=== PATIENT | female | born 1970 | race Caucasian/White ===

== ENCOUNTER 2016-08-05 09:06 | Inpatient (IN) | payer BC ==
[2016-08-05] MEDS ORDERED: NS 1,000 ML IV ONE ×2 (09:25→09:26)
[2016-08-05] MEDS ORDERED: ONDANSETRON HCL 4 MG/2 ML VIAL IV ONE (09:26)
--- NOTE | 2016-08-05 09:29 | EDPRACDOC ---
- General Information Chief Complaint: Nausea,Vomiting,Diarrhea Stated Complaint: HYPERGLYCEMIA Time Seen by Provider: 08/05/16 09:22 Mode Of Arrival: Car Home Medications: Home Medications Gabapentin 600 mg PO BID 12/07/15 Apixaban [Eliquis] 5 mg PO BID #60 tablet 07/07/16 Esomeprazole Mag Trihydrate [Nexium] 40 mg PO BID #60 capsule.dr 07/07/16 Metoclopramide HCl [Reglan] 5 mg PO ACHS #30 tab 07/07/16 Mupirocin Calcium [Bactroban Nasal] 1 gm INTRANAS BID #1 oint...g. 07/07/16 Ondansetron HCl [Zofran] 4 mg PO Q6H PRN #30 tab 07/07/16 Oxycodone Immediate Release [Oxycodone Immediate Release (OxyIR)] 5 mg PO Q4H PRN #20 tablet 07/07/16 Probiotic Blend [Zoey Q] 1 tab PO BIDWM #20 tablet 07/07/16 Insulin Glargine [Lantus Pen] 35 units SQ QAM 08/05/16 Insulin Lispro [Humalog] 0 units SQ .SLIDING SCALE 08/05/16 Pantoprazole Sodium [Protonix] 40 mg PO BID 08/05/16 Allergies/Adverse Reactions: Allergies Allergy/AdvReac Type Severity Reaction Status Date / Time No Known Allergies Allergy Verified 08/05/16 09:19 - History of Present Illness Onset: LAST NIGHT HPI: PT HAS A HX OF DIABETES. SHE WAS ADMITTED ON 07/01 FOR DKA AND WAS D/C'D ON THE . SHE SAID THAT SHE FEELS THE SAME WAY. SHE STARTED HAVING N/V LAST NIGHT AND VOMITED ALL NIGHT. SHE SAID THAT SHE HAS NOT SKIPPED ANY OF HER MEDS. Symptoms Occured: Reports: Spontaneous Duration: Reports: Continuous Recent: Reports: None Pain Severity: Mild History of: Denies: UTI Associated Signs & Symptoms: Reports: Nausea, Vomiting Oral Intake: Decreased Urinary Output: Decreased ED Past Medical History - Patient Medical History Neurological History: Reports: Cerebrovascular Accident, Dementia Cardiac History: Reports: Hypercholesterolemia. Denies: Atrial Fibrillation, Hypertension, Congestive Heart Failure, Heart Attack Respiratory History: Denies: Asthma, COPD, Emphysema GI/ History: Reports: Gastroesophageal Reflux. Denies: Urinary Tract Infection Musculoskeletal History: Reports: Arthritis, Osteoarthritis Psychological History: Reports: Depression. Denies: Substance Use Disorder Systemic History: Reports: Cancer, Anemia, Diabetes Surgical History: Reports: Cholecystectomy, Hysterectomy, Other ( x3) - Family Medical History Reports: Hypertension, Diabetes, Cancer (MOM-LEUKEMIA), Stroke (MOM) - Social Medical History Smoking Status: Never smoker Social History: Denies: Substance Use Disorder ETOH: None Substance Abuse: None Lives In: Home EDM Review of Systems - Review of Systems ROS Negative Except as Marked: Yes All systems reviewed and were negative except as marked Gastrointestinal: Nausea, Vomiting - Physical Exam Constitutional: Alert (Awake), Distress Oriented to: Time, Person, Place Last recorded Vital Signs: Last Vital Signs Temp 97.7 F 08/05/16 09:09 Pulse 106 08/05/16 09:09 Resp 18 08/05/16 09:09 BP 122/82 08/05/16 09:09 Pulse Ox 100 08/05/16 09:09 Oxygen Pulse Oxygen Saturation 100 O2 Device Oxygen Flow Rate Fraction of Inspired Oxygen ( FIO2) - HEENT Head: Normal ( normocephalic) Eye Exam: Normal (PERRL, EOMI, Sclera white) Oropharynx: Membranes Dry ENT EAC: Normal TMJ: Normal Nose: No Symptoms Reported (septum midline) Neck: Normal (FROM, trachea at midline) - Respiratory/Cardiovascular Respiratory: Normal - CTA Cardiovascular: Tachycardia - GI Auscultation: Normal (NABS) Palpation: Normal (Soft,No rebound or guarding, non distended) Tenderness: Mild, Epigastric Steele's Sign: Negative - Musculoskeletal Back: Normal (Non-Tender) Extremities: Normal (Normal tone, Pulses 2+ No cyanosis or edema, FROM) - Integumentary Skin: Normal, Warm, Dry Lymphatics: Normal (no adenopathy) - Neurologic Memory Impaired: Normal Motor Function: Normal (Normal tone, Pulses 2+ No cyanosis or edema, FROM) Cranial Nerve: Normal (CN II-X11 intact sensation, strength 5/5) Cerebellar: Normal Mood Description: Normal Thought: Coherent Perception: Normal - Re-evaluation Re-evaluation 1 Re-evaluation Time: 10:35 (STILL FEELING BADLY) - Results 08/05/16 09:55 08/05/16 09:55 POC Capillary Glucose 387 MG/DL (70-99) H 08/05/16 09:20 Lab Results 08/05/16 09:20 POC Capillary Glucose 387 H - EKG EKG #1 EKG Time: 09:39 -: Yes EKG interpreted by me Rate: bpm: 92 Cardinal: Normal Rhythm: NSR Block: None Hypertrophy: None ST: Normal Comparison: 07/01/16 - Diagnostic Imaging Chest Image interpreted by: Radiologist No active disease. - Departure Yes I personally saw and evaluated the patient. Disposition: Admit IP To This Hospital Condition: Serious Final Diagnosis: Dehydration, Nausea and vomiting, DKA (diabetic ketoacidoses) Instructions: Acute Nausea and Vomiting (ED), Managing Diabetes During Sick Days (ED), Diabetes and Exercise Education/Counseling Given To: Patient Education/Counseling Given Regarding: Diagnosis, Treatment Referrals: Humberto Hernandez MD [Primary Care Provider] - One Week Forms: Patient Discharge Instructions, ED Discharge Instructions Decision to Admit Time: 10:36 Decision to admit date: 08/05/16 Decision to admit: from ED - Physician Consulted Hospitalist Provider Called: Vicky Lemos
[2016-08-05] MEDS ORDERED: REGULAR INSULIN 100 UNITS/ML - 3 ML VIAL IV ONE (09:30)
[2016-08-05 10:02] LABS: AUTOMATED BASOPHIL 0.8 % (0-2); AUTOMATED EOSINOPHIL 0.1 % (0-5); AUTOMATED LYMPH 27.5 % (17-44); AUTOMATED MONOCYTE 5.7 % (3-10); AUTOMATED NEUTROPHIL 65.9 % (45-76)
[2016-08-05 10:10] LABS: LEUKOCYTES/URINE NEG (NEGATIVE); NITRITE/URINE NEG (NEGATIVE); URINE OCCULT BLOOD 2+ (NEG/TRACE)
--- NOTE | 2016-08-05 10:10 | DIRPT ---
CLINICAL DATA: Nausea vomiting. EXAM: PORTABLE CHEST 1 VIEW COMPARISON: April 02, 2016 FINDINGS: The left Port-A-Cath is stable. No other interval changes or acute abnormalities. IMPRESSION: No active disease. Electronically Signed By: Torey Chapa III, M.D On: 08/05/2016 10:07
[2016-08-05 10:14] LABS: BLOOD UREA NITROGEN 16 MG/DL (7-17); CALCIUM 9.2 MG/DL (8.4-10.2); CALCULATED OSMOLALITY 277 MOs/Kg (270-290); CHLORIDE 100 mEq/L (98-107); SODIUM LEVEL 132 mEq/L (137-146); TOTAL PROTEIN 7.4 G/DL (6.3-8.2)
[2016-08-05 10:18] LABS: RBC/URINE 0-2 (0-5); WBC/URINE 0-2 (0-5)
[2016-08-05 10:22] LABS: GLUCOSE 479 MG/DL (70-99)
[2016-08-05] MEDS ORDERED: MORPHINE 4 MG/ML INJECTION IV ONE (10:35)
[2016-08-05] MEDS ORDERED: BENZONATATE 100 MG PERLES PO PRN (11:15)
[2016-08-05] MEDS ORDERED: GUAIFENESIN 200 MG/10 ML UDC PO PRN (11:15)
[2016-08-05] MEDS ORDERED: MAGNESIUM HYDROXIDE 30 ML BOTTLE PO PRN (11:15)
[2016-08-05] MEDS ORDERED: ONDANSETRON HCL 4 MG/2 ML VIAL IV PRN (11:15)
[2016-08-05] MEDS ORDERED: ZOLPIDEM TARTRATE 5 MG TAB PO PRN (11:15)
[2016-08-05] MEDS ORDERED: Docusate Sodium 100 MG CAP PO PRN (11:15)
[2016-08-05] MEDS ORDERED: PROMETHAZINE 25 MG/ML VIAL IV PRN (11:15)
[2016-08-05] MEDS ORDERED: DEXTROSE 25 GM/50 ML PFS IV PRN (11:15)
[2016-08-05] MEDS ORDERED: OXYCODONE HCL 5 MG TABLET PO PRN (11:18)
--- NOTE | 2016-08-05 11:21 | HISTPHYS ---
- Chief Complaint dka, nausea and vomiting - History of Present Illness Ms Ny is a 46-year-old white female well known to me from multiple hospitalizations for diabetic ketoacidosis. She presented to the hospital with nausea vomiting and delirium typical of her DKA symptoms. Her blood sugar is 479 with a bicarb of less than 5 and an anion gap of 32. She is unable to provide much other history but she has repeatedly stated that she is compliant with her insulin and states she took her insulin last evening and today. She has been admitted here approximately once a month for the last 7 months. She is also had frequent admissions to [facility] in [place] into [facility]. Her primary retirement specialist Dr. Bowser in [place] has referred her to [facility] for 2nd opinion to evaluate why she keeps having these frequent episodes of DKA. She is being admitted to the intensive care unit for further evaluation and management of acute DKA. - Medical History Cardiac History: Reports: Hypercholesterolemia. Denies: Atrial Fibrillation, Hypertension, Congestive Heart Failure, Heart Attack Respiratory History: Denies: Asthma, COPD, Emphysema GI/ History: Reports: Gastroesophageal Reflux. Denies: Urinary Tract Infection Musculoskeletal History: Reports: Arthritis, Osteoarthritis Systemic History: Reports: Cancer, Anemia, Diabetes Neurological History: Reports: Cerebrovascular Accident, Dementia Psychological History: Reports: Depression. Denies: Substance Use Disorder - Surgical History Reports: Cholecystectomy, Hysterectomy, Other ( x3) - Medictions/Allergies Allergies No Known Allergies Allergy (Verified 08/05/16 09:19) Home Medications Gabapentin 600 mg PO BID 12/07/15 Apixaban [Eliquis] 5 mg PO BID #60 tablet 07/07/16 Esomeprazole Mag Trihydrate [Nexium] 40 mg PO BID #60 capsule. 07/07/16 Metoclopramide HCl [Reglan] 5 mg PO ACHS #30 tab 07/07/16 Mupirocin Calcium [Bactroban Nasal] 1 gm INTRANAS BID #1 oint...g. 07/07/16 Ondansetron HCl [Zofran] 4 mg PO Q6H PRN #30 tab 07/07/16 Oxycodone Immediate Release [Oxycodone Immediate Release (OxyIR)] 5 mg PO Q4H PRN #20 tablet 07/07/16 Probiotic Blend [Zoey Q] 1 tab PO BIDWM #20 tablet 07/07/16 Insulin Glargine [Lantus Pen] 35 units SQ QAM 08/05/16 Insulin Lispro [Humalog] 0 units SQ .SLIDING SCALE 08/05/16 Pantoprazole Sodium [Protonix] 40 mg PO BID 08/05/16 - Family History Reports: Hypertension, Diabetes, Cancer (MOM-LEUKEMIA), Stroke (MOM) - Social History Lives: Alone Smoking Status: Never smoker Social History: Denies: Alcohol Use, Substance Use Disorder - Review of Systems Yes Review of systems cannot be obtained due to the patient's medical condition (Lethargy and delirium) - Physical Exam Constitutional: Alert (Awake), Distress, Well nourished. negative: Well appearing (Chronically ill-appearing) Oriented to: Time, Person, Place Exam: Last Vital Signs Temp 97.7 F 08/05/16 09:09 Pulse 102 08/05/16 10:40 Resp 08/05/16 10:40 BP 133/80 08/05/16 10:40 Pulse Ox 100 08/05/16 10:40 Intake & Output 08/04/16 08/05/16 08/05/16 23:59 07:59 15:59 Patient's weight 65.771 kg - HEENT Head: Normal ( normocephalic) Eye: Normal (PERRL, EOMI, Sclera white) Oropharynx: Membranes Dry ENT EAC: Normal TMJ: Normal Nose: No Symptoms Reported (septum midline) - Respiratory/Cardiovascular Respiratory: Normal - CTA Cardiovascular: Tachycardia - GI Auscultation: Normal (NABS) Palpation: Normal (Soft,No rebound or guarding, non distended) Tenderness: Mild, Epigastric - Musculoskeletal Back: Normal (Non-Tender) Extremities: Normal (Normal tone, Pulses 2+ No cyanosis or edema, FROM), Edema, Pedal Edema. negative: Femoral Pulse, Pedal Pulse - Integumentary Skin: Normal, Warm, Dry Lymphatics: Normal (no adenopathy). negative: Adenopathy - Neurologic Memory Impaired: Normal Cerebellar: Normal Mood Description: Normal Thought: Coherent Perception: Normal - Focused CV Perfusion Exam Vital Signs: Last Vital Signs Temp 97.7 F 08/05/16 09:09 Pulse 102 08/05/16 10:40 Resp 18 08/05/16 10:40 BP 133/80 08/05/16 10:40 Pulse Ox 100 08/05/16 10:40 - Lab Results Laboratory Results - last 24 hr 08/05/16 08/05/16 08/05/16 09:20 09:53 09:55 WBC RBC Hgb Hct MCV MCH MCHC RDW Plt Count MPV Neut % (Auto) Lymph % (Auto) [place] % (Auto) Eos % (Auto) Baso % (Auto) Absolute Neuts (auto) Absolute Lymphs (auto) Sodium 132 L Potassium 4.8 Chloride 100 Carbon Dioxide < 5 L* Anion Gap 32 H BUN 16 Creatinine 0.50 L Estimated GFR (MDRD) > 60 Glucose 479 H* POC Capillary Glucose 387 H Calculated Osmolality 277 Calcium 9.2 Total Bilirubin 0.6 AST 20 ALT 38 Alkaline Phosphatase 189 H Troponin I Total Protein 7.4 Albumin 4.3 Lipase 35 Urine Color Yellow Urine Clarity Clear Urine pH 6.0 Ur Specific [place] 1.015 Urine Protein 1+ H Urine Glucose (UA) 3+ H Urine Ketones 3+ H Urine Occult Blood 2+ H Urine Nitrite Neg Urine Bilirubin Neg Urine Urobilinogen 0.2 Ur Leukocyte Esterase Neg Urine RBC 0-2 Urine WBC 0-2 Ur Epithelial Cells Occ Urine Bacteria Few Hyaline Casts 0-2 Granular Casts 0-2 H Urine Mucus Occ 08/05/16 08/05/16 09:55 09:55 WBC 4.4 RBC 4.37 Hgb 13.9 Hct 42.5 MCV 97 MCH 31.8 MCHC 32.7 L RDW 17.6 H Plt Count 258 MPV 8.0 Neut % (Auto) 65.9 Lymph % (Auto) 27.5 [place] % (Auto) 5.7 Eos % (Auto) 0.1 Baso % (Auto) 0.8 Absolute Neuts (auto) 2.86 Absolute Lymphs (auto) 1.19 Sodium Potassium Chloride Carbon Dioxide Anion Gap BUN Creatinine Estimated GFR (MDRD) Glucose POC Capillary Glucose Calculated Osmolality Calcium Total Bilirubin AST ALT Alkaline Phosphatase Troponin I < 0.01 Total Protein Albumin Lipase Urine Color Urine Clarity Urine pH Ur Specific [place] Urine Protein Urine Glucose (UA) Urine Ketones Urine Occult Blood Urine Nitrite Urine Bilirubin Urine Urobilinogen Ur Leukocyte Esterase Urine RBC Urine WBC Ur Epithelial Cells Urine Bacteria Hyaline Casts Granular Casts Urine Mucus - Assessment (1) DKA (diabetic ketoacidoses) E13.10 - OTH DIABETES MELLITUS WITH KETOACIDOSIS WITHOUT COMA Acute Present on Admission: Yes Qualifiers: Diabetes mellitus type: type 1 Diabetes mellitus complication detail: with coma Qualified Code(s): E10.11 - Type 1 diabetes mellitus with ketoacidosis with coma Disoriented and lethargic. Acutely ill. Difficult to believe she is compliant with her insulin. She stated earlier to staff that she took her insulin last night and and again this morning. She has frequent episodes of DKA and usually corrects rapidly. She will be started on insulin drip. Aggressively hydrated. Electrolytes will be repleted. (2) Dehydration E86.0 - DEHYDRATION Acute Present on Admission: Yes IV fluids and supportive care (3) Nausea & vomiting R11.2 - NAUSEA WITH VOMITING, UNSPECIFIED Acute Present on Admission: Yes Qualifiers: Vomiting type: unspecified Vomiting Intractability: intractable Qualified Code(s): R11.2 - Nausea with vomiting, unspecified Due to DKA. IV hydration and anti emetics as needed (4) Gastroparesis K31.84 - GASTROPARESIS Chronic Present on Admission: Yes Continue home medications and dietary modifications (5) Medical non-compliance Z91.19 - PATIENT'S NONCOMPLIANCE W OTH MEDICAL TREATMENT AND REGIMEN Acute Present on Admission: Yes Suspicious of this given frequent episodes of DKA. She does seem to correct rapidly.
[2016-08-05] MEDS: Insulin, Regular 100 UNITS in NS 99 ML IV SCH ×4 (11:25→20:44)
[2016-08-05] MEDS ORDERED: Insulin, Regular 100 UNITS in NS 99 ML IV SCH ×2 (12:00)
[2016-08-05] MEDS ORDERED: DKA ELECTROLYTE PROTOCOL SCH (12:00)
[2016-08-05] MEDS ORDERED: REGULAR INSULIN 100 UNITS/ML - 3 ML VIAL SQ SCH (12:00)
[2016-08-05] MEDS ORDERED: D5W/NS/KCl 20 mEq 1,000 ML IV SCH (12:00)
[2016-08-05] MEDS ORDERED: ENOXAPARIN 40 MG/0.4 ML PFS SQ SCH (12:00)
[2016-08-05] MEDS ORDERED: NS 1,000 ML IV SCH (12:00)
[2016-08-05] MEDS ORDERED: NS/KCl 20 mEq 1,000 ML IV SCH (12:00)
[2016-08-05 12:07] LABS: LEUKOCYTES/URINE NEG (NEGATIVE); NITRITE/URINE NEG (NEGATIVE); URINE OCCULT BLOOD TRACE (NEG/TRACE)
[2016-08-05 12:11] LABS: RBC/URINE 0-2 (0-5); WBC/URINE 0-2 (0-5)
[2016-08-05] MEDS: METOCLOPRAMIDE 5 MG TAB PO SCH ×3 (12:37→20:44)
[2016-08-05] MEDS ORDERED: GLARGINE INSULIN (LANTUS) 100 UNITS/ML PEN SQ SCH (13:00)
[2016-08-05] MEDS: D5W/NS/KCl 20 mEq 1,000 ML IV SCH ×2 (13:14→20:42)
[2016-08-05] MEDS ORDERED: Vaccine Screening Complete SCH (14:00)
[2016-08-05 14:49] LABS: BLOOD UREA NITROGEN 13 MG/DL (7-17); CALCIUM 8.6 MG/DL (8.4-10.2); CALCULATED OSMOLALITY 263 MOs/Kg (270-290); CHLORIDE 110 mEq/L (98-107); GLUCOSE 81 MG/DL (70-99); SODIUM LEVEL 137 mEq/L (137-146)
[2016-08-05] MEDS: PANTOPRAZOLE 40 MG TAB PO SCH (17:35)
[2016-08-05] MEDS: PROBIOTIC BLEND TAB PO SCH (17:35)
[2016-08-05 19:58] LABS: BLOOD UREA NITROGEN 10 MG/DL (7-17); CALCIUM 7.9 MG/DL (8.4-10.2); CALCULATED OSMOLALITY 257 MOs/Kg (270-290); CHLORIDE 107 mEq/L (98-107); GLUCOSE 228 MG/DL (70-99); SODIUM LEVEL 130 mEq/L (137-146)
[2016-08-05] MEDS: GABAPENTIN 300 MG CAP PO SCH (20:44)
[2016-08-05] MEDS: APIXABAN 5 MG TABLET PO SCH (20:44)
[2016-08-05] MEDS: CHLORHEXIDINE (HIBICLENS) 4 OZ BOTTLE TOP SCH (20:46)
[2016-08-05] MEDS ORDERED: Non-Formulary Medication ITEM (Gabapentin [Gabapentin] 600 MG) PO SCH (21:00)
[2016-08-05 22:08] LABS: BLOOD UREA NITROGEN 10 MG/DL (7-17); CALCIUM 7.9 MG/DL (8.4-10.2); CALCULATED OSMOLALITY 257 MOs/Kg (270-290); CHLORIDE 109 mEq/L (98-107); GLUCOSE 150 MG/DL (70-99); SODIUM LEVEL 132 mEq/L (137-146)
[2016-08-05] MEDS ORDERED: KCL 20 mEq/100 ml Premix Run 20 MEQ/100 ML RTU IV ONE (23:00)
[2016-08-06] MEDS: Magnesium Sulfate 2 gm/D5W 2 GM/50 ML RTU IV SCH ×2 (00:47→02:38)
[2016-08-06 02:17] LABS: BLOOD UREA NITROGEN 12 MG/DL (7-17); CALCIUM 8.1 MG/DL (8.4-10.2); CALCULATED OSMOLALITY 259 MOs/Kg (270-290); CHLORIDE 111 mEq/L (98-107); GLUCOSE 81 MG/DL (70-99); SODIUM LEVEL 135 mEq/L (137-146)
[2016-08-06] MEDS: D5W/NS/KCl 20 mEq 1,000 ML IV SCH (03:40)
[2016-08-06] MEDS: ACETAMINOPHEN 325 MG/TAB TABLET PO PRN ×2 (05:06→11:18)
[2016-08-06] MEDS: PANTOPRAZOLE 40 MG TAB PO SCH ×2 (05:06→18:41)
[2016-08-06] MEDS: METOCLOPRAMIDE 5 MG TAB PO SCH ×4 (05:07→21:25)
[2016-08-06] MEDS: Insulin, Regular 100 UNITS in NS 99 ML IV SCH ×2 (05:08)
[2016-08-06 06:19] LABS: BLOOD UREA NITROGEN 11 MG/DL (7-17); CALCULATED OSMOLALITY 261 MOs/Kg (270-290); CHLORIDE 110 mEq/L (98-107); GLUCOSE 127 MG/DL (70-99); SODIUM LEVEL 135 mEq/L (137-146)
[2016-08-06] MEDS ORDERED: GLUCAGON 1 MG VIAL SQ PRN (07:45)
[2016-08-06] MEDS ORDERED: GLUCOSE (ORAL GEL) 15 GM TUBE PO PRN (07:45)
[2016-08-06] MEDS ORDERED: DEXTROSE 25 GM/50 ML PFS IV PRN (07:45)
[2016-08-06] MEDS: PROBIOTIC BLEND TAB PO SCH ×2 (07:56→18:41)
[2016-08-06] MEDS: GABAPENTIN 300 MG CAP PO SCH ×2 (07:56→21:24)
[2016-08-06] MEDS: APIXABAN 5 MG TABLET PO SCH ×2 (07:56→21:25)
[2016-08-06] MEDS: GLARGINE INSULIN (LANTUS) 100 UNITS/ML PEN SQ SCH (07:57)
--- NOTE | 2016-08-06 08:11 | GENMEDPROG ---
Chief Complaint: Some better today. Less nausea and vomiting. Main complaint is pain. Bicarb still slightly low at 18 but anion gap has closed Notes Reviewed: Yes Events from last night noted and discussed with Clinical Staff Current Medication List: Reviewed Currently: Reports: Nausea and Vomiting, Abdominal Pain. Denies: Cough, Wheezing, MANCUSO, SOB, Chest Pain DVT Prophylaxis: Yes - Physical Examination Vital Signs and I&O: Last Vital Signs Temp 97.5 F 08/06/16 02:00 Pulse 83 08/06/16 06:00 Resp 18 08/06/16 06:00 BP 92/56 L 08/06/16 06:00 Pulse Ox 98 08/06/16 06:00 Oxygen Pulse Oxygen Saturation 98 O2 Device Room Air Oxygen Flow Rate Fraction of Inspired Oxygen ( 99 FIO2) Intake & Output 08/03/16 08/04/16 08/05/16 08/06/16 23:59 23:59 23:59 23:59 Intake Total 4366 1716 Output Total 1725 425 Balance 2641 1291 Patient's weight 63.73 kg 64.818 kg General: Alert, Oriented x3, Cooperative, No acute distress, Well appearing, Well nourished HEENT: Normal, PERRLA, EOMI, Anicteric Sclera Neck: Non-tender, Full range of motion, Normal Trachea alignment. negative: JVD Lymphatics: Normal (no adenopathy). negative: Adenopathy Respiratory: Normal - CTA Cardiovascular: Regular rate and rhythm, No Gallops,Rubs/Murmurs GI: Normal bowel sounds, Soft, Non tender, No hepatospenomegaly Extremities/Musculoskeletal: Normal pulses. negative: Tenderness, Swelling, Edema Skin: Warm,Dry and Intact, No rashes, No breakdown Neurological: Normal speech, Strength at 5/5 X4 ext, Normal tone, Cranial nerves 3-12 NL Psych/Mental Status: Appropriate, Normal Affect, Cooperative Lab/DI/Studies Reviewed: Laboratory Results - last 24 hr 08/05/16 08/05/16 08/05/16 09:20 09:53 09:55 WBC RBC Hgb Hct MCV MCH MCHC RDW Plt Count MPV Neut % (Auto) Lymph % (Auto) [place] % (Auto) Eos % (Auto) Baso % (Auto) Absolute Neuts (auto) Absolute Lymphs (auto) Sodium 132 L Potassium 4.8 Chloride 100 Carbon Dioxide < 5 L* Anion Gap 32 H BUN 16 Creatinine 0.50 L Estimated GFR (MDRD) > 60 Glucose 479 H* POC Capillary Glucose 387 H Calculated Osmolality 277 Calcium 9.2 Corrected Calcium Phosphorus Magnesium Total Bilirubin 0.6 AST 20 ALT 38 Alkaline Phosphatase 189 H Troponin I Total Protein 7.4 Albumin 4.3 Lipase 35 Urine Color Yellow Urine Clarity Clear Urine pH 6.0 Ur Specific [place] 1.015 Urine Protein 1+ H Urine Glucose (UA) 3+ H Urine Ketones 3+ H Urine Occult Blood 2+ H Urine Nitrite Neg Urine Bilirubin Neg Urine Urobilinogen 0.2 Ur Leukocyte Esterase Neg Urine RBC 0-2 Urine WBC 0-2 Ur Epithelial Cells Occ Urine Bacteria Few Hyaline Casts 0-2 Granular Casts 0-2 H Urine Mucus Occ 08/05/16 08/05/16 08/05/16 09:55 09:55 09:55 WBC 4.4 RBC 4.37 Hgb 13.9 Hct 42.5 MCV 97 MCH 31.8 MCHC 32.7 L RDW 17.6 H Plt Count 258 MPV 8.0 Neut % (Auto) 65.9 Lymph % (Auto) 27.5 [place] % (Auto) 5.7 Eos % (Auto) 0.1 Baso % (Auto) 0.8 Absolute Neuts (auto) 2.86 Absolute Lymphs (auto) 1.19 Sodium Cancelled Potassium Cancelled Chloride Cancelled Carbon Dioxide Cancelled Anion Gap Cancelled BUN Cancelled Creatinine Cancelled Estimated GFR (MDRD) Cancelled Glucose Cancelled POC Capillary Glucose Calculated Osmolality Cancelled Calcium Cancelled Corrected Calcium Cancelled Phosphorus 4.0 Magnesium 2.10 Total Bilirubin AST ALT Alkaline Phosphatase Troponin I < 0.01 Total Protein Albumin Lipase Urine Color Urine Clarity Urine pH Ur Specific [place] Urine Protein Urine Glucose (UA) Urine Ketones Urine Occult Blood Urine Nitrite Urine Bilirubin Urine Urobilinogen Ur Leukocyte Esterase Urine RBC Urine WBC Ur Epithelial Cells Urine Bacteria Hyaline Casts Granular Casts Urine Mucus 08/05/16 08/05/16 08/05/16 11:21 11:38 12:23 WBC RBC Hgb Hct MCV MCH MCHC RDW Plt Count MPV Neut % (Auto) Lymph % (Auto) [place] % (Auto) Eos % (Auto) Baso % (Auto) Absolute Neuts (auto) Absolute Lymphs (auto) Sodium Potassium Chloride Carbon Dioxide Anion Gap BUN Creatinine Estimated GFR (MDRD) Glucose POC Capillary Glucose 331 H 151 H Calculated Osmolality Calcium Corrected Calcium Phosphorus Magnesium Total Bilirubin AST ALT Alkaline Phosphatase Troponin I Total Protein Albumin Lipase Urine Color Pale yell0w Urine Clarity Clear Urine pH 5.0 Ur Specific [place] 1.010 Urine Protein Neg Urine Glucose (UA) 3+ H Urine Ketones 3+ H Urine Occult Blood Trace Urine Nitrite Neg Urine Bilirubin Neg Urine Urobilinogen 0.2 Ur Leukocyte Esterase Neg Urine RBC 0-2 Urine WBC 0-2 Ur Epithelial Cells Urine Bacteria Few Hyaline Casts 2-5 H Granular Casts Urine Mucus Sm amt 08/05/16 08/05/16 08/05/16 13:47 14:10 14:37 WBC RBC Hgb Hct MCV MCH MCHC RDW Plt Count MPV Neut % (Auto) Lymph % (Auto) [place] % (Auto) Eos % (Auto) Baso % (Auto) Absolute Neuts (auto) Absolute Lymphs (auto) Sodium 137 Potassium 4.1 Chloride 110 H Carbon Dioxide 16 L Anion Gap 15 BUN 13 Creatinine 0.50 L Estimated GFR (MDRD) > 60 Glucose 81 POC Capillary Glucose 80 108 H Calculated Osmolality 263 L Calcium 8.6 Corrected Calcium Phosphorus Magnesium Total Bilirubin AST ALT Alkaline Phosphatase Troponin I Total Protein Albumin Lipase Urine Color Urine Clarity Urine pH Ur Specific [place] Urine Protein Urine Glucose (UA) Urine Ketones Urine Occult Blood Urine Nitrite Urine Bilirubin Urine Urobilinogen Ur Leukocyte Esterase Urine RBC Urine WBC Ur Epithelial Cells Urine Bacteria Hyaline Casts Granular Casts Urine Mucus 08/05/16 08/05/16 08/05/16 15:31 16:32 17:32 WBC RBC Hgb Hct MCV MCH MCHC RDW Plt Count MPV Neut % (Auto) Lymph % (Auto) [place] % (Auto) Eos % (Auto) Baso % (Auto) Absolute Neuts (auto) Absolute Lymphs (auto) Sodium Potassium Chloride Carbon Dioxide Anion Gap BUN Creatinine Estimated GFR (MDRD) Glucose POC Capillary Glucose 108 H 132 H 128 H Calculated Osmolality Calcium Corrected Calcium Phosphorus Magnesium Total Bilirubin AST ALT Alkaline Phosphatase Troponin I Total Protein Albumin Lipase Urine Color Urine Clarity Urine pH Ur Specific [place] Urine Protein Urine Glucose (UA) Urine Ketones Urine Occult Blood Urine Nitrite Urine Bilirubin Urine Urobilinogen Ur Leukocyte Esterase Urine RBC Urine WBC Ur Epithelial Cells Urine Bacteria Hyaline Casts Granular Casts Urine Mucus 08/05/16 08/05/16 08/05/16 19:34 19:34 20:40 WBC RBC Hgb Hct MCV MCH MCHC RDW Plt Count MPV Neut % (Auto) Lymph % (Auto) [place] % (Auto) Eos % (Auto) Baso % (Auto) Absolute Neuts (auto) Absolute Lymphs (auto) Sodium 130 L D Potassium 4.0 Chloride 107 Carbon Dioxide 15 L Anion Gap 12 BUN 10 Creatinine 0.40 L Estimated GFR (MDRD) > 60 Glucose 228 H POC Capillary Glucose 214 H 188 H Calculated Osmolality 257 L Calcium 7.9 L Corrected Calcium Phosphorus Magnesium Total Bilirubin AST ALT Alkaline Phosphatase Troponin I Total Protein Albumin Lipase Urine Color Urine Clarity Urine pH Ur Specific [place] Urine Protein Urine Glucose (UA) Urine Ketones Urine Occult Blood Urine Nitrite Urine Bilirubin Urine Urobilinogen Ur Leukocyte Esterase Urine RBC Urine WBC Ur Epithelial Cells Urine Bacteria Hyaline Casts Granular Casts Urine Mucus 08/05/16 08/05/16 08/05/16 21:38 21:40 21:45 WBC RBC Hgb Hct MCV MCH MCHC RDW Plt Count MPV Neut % (Auto) Lymph % (Auto) [place] % (Auto) Eos % (Auto) Baso % (Auto) Absolute Neuts (auto) Absolute Lymphs (auto) Sodium 132 L Potassium 3.4 L Chloride 109 H Carbon Dioxide 11 L Anion Gap 15 BUN 10 Creatinine 0.40 L Estimated GFR (MDRD) > 60 Glucose 150 H POC Capillary Glucose > 600 H* 152 H Calculated Osmolality 257 L Calcium 7.9 L Corrected Calcium Phosphorus 1.4 L Magnesium 1.50 L Total Bilirubin AST ALT Alkaline Phosphatase Troponin I Total Protein Albumin Lipase Urine Color Urine Clarity Urine pH Ur Specific [place] Urine Protein Urine Glucose (UA) Urine Ketones Urine Occult Blood Urine Nitrite Urine Bilirubin Urine Urobilinogen Ur Leukocyte Esterase Urine RBC Urine WBC Ur Epithelial Cells Urine Bacteria Hyaline Casts Granular Casts Urine Mucus 08/05/16 08/05/16 08/06/16 22:31 23:37 00:44 WBC RBC Hgb Hct MCV MCH MCHC RDW Plt Count MPV Neut % (Auto) Lymph % (Auto) [place] % (Auto) Eos % (Auto) Baso % (Auto) Absolute Neuts (auto) Absolute Lymphs (auto) Sodium Potassium Chloride Carbon Dioxide Anion Gap BUN Creatinine Estimated GFR (MDRD) Glucose POC Capillary Glucose 109 H 119 H 81 Calculated Osmolality Calcium Corrected Calcium Phosphorus Magnesium Total Bilirubin AST ALT Alkaline Phosphatase Troponin I Total Protein Albumin Lipase Urine Color Urine Clarity Urine pH Ur Specific [place] Urine Protein Urine Glucose (UA) Urine Ketones Urine Occult Blood Urine Nitrite Urine Bilirubin Urine Urobilinogen Ur Leukocyte Esterase Urine RBC Urine WBC Ur Epithelial Cells Urine Bacteria Hyaline Casts Granular Casts Urine Mucus 08/06/16 08/06/16 08/06/16 01:55 01:55 03:08 WBC RBC Hgb Hct MCV MCH MCHC RDW Plt Count MPV Neut % (Auto) Lymph % (Auto) [place] % (Auto) Eos % (Auto) Baso % (Auto) Absolute Neuts (auto) Absolute Lymphs (auto) Sodium 135 L Potassium 3.9 Chloride 111 H Carbon Dioxide 18 L Anion Gap 10 BUN 12 Creatinine 0.40 L Estimated GFR (MDRD) > 60 Glucose 81 POC Capillary Glucose 80 158 H Calculated Osmolality 259 L Calcium 8.1 L Corrected Calcium Phosphorus Magnesium Total Bilirubin AST ALT Alkaline Phosphatase Troponin I Total Protein Albumin Lipase Urine Color Urine Clarity Urine pH Ur Specific [place] Urine Protein Urine Glucose (UA) Urine Ketones Urine Occult Blood Urine Nitrite Urine Bilirubin Urine Urobilinogen Ur Leukocyte Esterase Urine RBC Urine WBC Ur Epithelial Cells Urine Bacteria Hyaline Casts Granular Casts Urine Mucus 08/06/16 08/06/16 08/06/16 04:07 05:00 05:50 WBC RBC Hgb Hct MCV MCH MCHC RDW Plt Count MPV Neut % (Auto) Lymph % (Auto) [place] % (Auto) Eos % (Auto) Baso % (Auto) Absolute Neuts (auto) Absolute Lymphs (auto) Sodium 135 L Potassium 3.9 Chloride 110 H Carbon Dioxide 18 L Anion Gap 11 BUN 11 Creatinine 0.40 L Estimated GFR (MDRD) > 60 Glucose 127 H POC Capillary Glucose 146 H 87 Calculated Osmolality 261 L Calcium 8.0 L Corrected Calcium Phosphorus Magnesium Total Bilirubin AST ALT Alkaline Phosphatase Troponin I Total Protein Albumin Lipase Urine Color Urine Clarity Urine pH Ur Specific [place] Urine Protein Urine Glucose (UA) Urine Ketones Urine Occult Blood Urine Nitrite Urine Bilirubin Urine Urobilinogen Ur Leukocyte Esterase Urine RBC Urine WBC Ur Epithelial Cells Urine Bacteria Hyaline Casts Granular Casts Urine Mucus 08/06/16 08/06/16 08/06/16 06:15 07:08 07:55 WBC RBC Hgb Hct MCV MCH MCHC RDW Plt Count MPV Neut % (Auto) Lymph % (Auto) [place] % (Auto) Eos % (Auto) Baso % (Auto) Absolute Neuts (auto) Absolute Lymphs (auto) Sodium Potassium Chloride Carbon Dioxide Anion Gap BUN Creatinine Estimated GFR (MDRD) Glucose POC Capillary Glucose 184 H 139 H 95 Calculated Osmolality Calcium Corrected Calcium Phosphorus Magnesium Total Bilirubin AST ALT Alkaline Phosphatase Troponin I Total Protein Albumin Lipase Urine Color Urine Clarity Urine pH Ur Specific [place] Urine Protein Urine Glucose (UA) Urine Ketones Urine Occult Blood Urine Nitrite Urine Bilirubin Urine Urobilinogen Ur Leukocyte Esterase Urine RBC Urine WBC Ur Epithelial Cells Urine Bacteria Hyaline Casts Granular Casts Urine Mucus - Assessment (1) DKA (diabetic ketoacidoses) Acute E13.10 - OTH DIABETES MELLITUS WITH KETOACIDOSIS WITHOUT COMA Qualifiers: Diabetes mellitus type: type 1 Diabetes mellitus complication detail: with coma Qualified Code(s): E10.11 - Type 1 diabetes mellitus with ketoacidosis with coma Comment/Plan: Much better today. Alert and oriented. DKA has resolved. Convert over to subcutaneous insulin. Continue Accu-Cheks and sliding scale insulin continue IV hydration and diabetic diet (2) Dehydration Acute E86.0 - DEHYDRATION Comment/Plan: IV fluids and supportive care (3) Nausea & vomiting Acute R11.2 - NAUSEA WITH VOMITING, UNSPECIFIED Qualifiers: Vomiting type: unspecified Vomiting Intractability: intractable Qualified Code(s): R11.2 - Nausea with vomiting, unspecified Comment/Plan: Much better today. Significant chronic component (4) Gastroparesis Chronic K31.84 - GASTROPARESIS Comment/Plan: Continue home medications and dietary modifications (5) Medical non-compliance Acute Z91.19 - PATIENT'S NONCOMPLIANCE W OTH MEDICAL TREATMENT AND REGIMEN Comment/Plan: Suspicious of this given frequent episodes of DKA. She does seem to correct rapidly. Case Care Discussed with: Patient, Nursing Staff, Resource Management, [place] Cleaner
[2016-08-06] MEDS: NS/KCl 20 mEq 1,000 ML IV SCH ×2 (09:02→19:10)
[2016-08-06] MEDS: REGULAR INSULIN 100 UNITS/ML - 3 ML VIAL SQ SCH ×3 (11:19→21:25)
[2016-08-06] MEDS: CHLORHEXIDINE (HIBICLENS) 4 OZ BOTTLE TOP SCH (21:16)
[2016-08-07] MEDS: REGULAR INSULIN 100 UNITS/ML - 3 ML VIAL SQ SCH ×4 (05:41→22:01)
[2016-08-07] MEDS: NS/KCl 20 mEq 1,000 ML IV SCH ×2 (05:41→05:45)
[2016-08-07] MEDS: METOCLOPRAMIDE 5 MG TAB PO SCH ×4 (05:45→22:00)
[2016-08-07] MEDS: PANTOPRAZOLE 40 MG TAB PO SCH ×2 (05:45→18:21)
[2016-08-07] MEDS: GLARGINE INSULIN (LANTUS) 100 UNITS/ML PEN SQ SCH (09:53)
[2016-08-07] MEDS: APIXABAN 5 MG TABLET PO SCH ×2 (09:53→22:00)
[2016-08-07] MEDS: PROBIOTIC BLEND TAB PO SCH ×2 (09:53→18:21)
[2016-08-07] MEDS: GABAPENTIN 300 MG CAP PO SCH ×2 (09:53→22:00)
--- NOTE | 2016-08-07 12:56 | GENMEDPROG ---
Chief Complaint: Hypoglycemic this morning. Dizzy and weak. Denies chest pain. Complains of abdominal pain. Tolerating p.o. without much difficulty. Notes Reviewed: Yes Events from last night noted and discussed with Clinical Staff Current Medication List: Reviewed Currently: Reports: Nausea and Vomiting, Abdominal Pain. Denies: Cough, Wheezing, MANCUSO, SOB, Chest Pain DVT Prophylaxis: Yes - Physical Examination Vital Signs and I&O: Last Vital Signs Temp 97.9 F 08/07/16 04:47 Pulse 75 08/07/16 04:47 Resp 18 08/07/16 04:47 BP 98/63 L 08/07/16 04:47 Pulse Ox 96 08/07/16 04:47 Oxygen Pulse Oxygen Saturation 96 O2 Device Room Air Oxygen Flow Rate Fraction of Inspired Oxygen ( 99 FIO2) Intake & Output 08/04/16 08/05/16 08/06/16 08/07/16 23:59 23:59 23:59 23:59 Intake Total 4366 4536 3357 Output Total 1725 1275 Balance 2641 3261 3357 Patient's weight 63.73 kg 64.818 kg 64.552 kg General: Alert, Oriented x3, Cooperative, No acute distress, Well appearing, Well nourished HEENT: Normal, PERRLA, EOMI, Anicteric Sclera Neck: Non-tender, Full range of motion, Normal Trachea alignment. negative: JVD Lymphatics: Normal (no adenopathy). negative: Adenopathy Respiratory: Normal - CTA Cardiovascular: Regular rate and rhythm, No Gallops,Rubs/Murmurs GI: Normal bowel sounds, Soft, Non tender, No hepatospenomegaly Extremities/Musculoskeletal: Normal pulses. negative: Tenderness, Swelling, Edema Skin: Warm,Dry and Intact, No rashes, No breakdown Neurological: Normal speech, Strength at 5/5 X4 ext, Normal tone, Cranial nerves 3-12 NL Psych/Mental Status: Appropriate, Normal Affect, Cooperative Lab/DI/Studies Reviewed: Laboratory Results - last 24 hr 08/06/16 08/06/16 08/07/16 17:44 21:22 04:53 Glucose POC Capillary Glucose 211 H 83 45 L* 08/07/16 08/07/16 08/07/16 04:58 05:18 05:22 Glucose 107 H POC Capillary Glucose 39 L* 90 08/07/16 11:51 Glucose POC Capillary Glucose 172 H - Assessment (1) DKA (diabetic ketoacidoses) Acute E13.10 - OTH DIABETES MELLITUS WITH KETOACIDOSIS WITHOUT COMA Qualifiers: Diabetes mellitus type: type 1 Diabetes mellitus complication detail: with coma Qualified Code(s): E10.11 - Type 1 diabetes mellitus with ketoacidosis with coma Comment/Plan: Overall some better. However she was significantly hypoglycemic this morning. Continue Lantus. Accu-Cheks and sliding scale insulin. Discontinue IV fluids and increase activity. She is tolerating p.o. without difficulty (2) Dehydration Acute E86.0 - DEHYDRATION Comment/Plan: Eating without difficulty. Discontinue IV fluids. (3) Nausea & vomiting Acute R11.2 - NAUSEA WITH VOMITING, UNSPECIFIED Qualifiers: Vomiting type: unspecified Vomiting Intractability: intractable Qualified Code(s): R11.2 - Nausea with vomiting, unspecified Comment/Plan: Much better today. Significant chronic component (4) Gastroparesis Chronic K31.84 - GASTROPARESIS Comment/Plan: Continue home medications and dietary modifications (5) Medical non-compliance Acute Z91.19 - PATIENT'S NONCOMPLIANCE W OTH MEDICAL TREATMENT AND REGIMEN Comment/Plan: Suspicious of this given frequent episodes of DKA. She does seem to correct rapidly. Case Care Discussed with: Patient, Nursing Staff, Resource Management, Respiratory Therapy, Explosive Ordnance Manager
[2016-08-07] MEDS: CHLORHEXIDINE (HIBICLENS) 4 OZ BOTTLE TOP SCH (22:00)
[2016-08-07] MEDS ORDERED: SODIUM CHLORIDE 0.9% 5 ML FLUSH FLUSH PRN (22:27)
[2016-08-08 04:46] VITALS: BP 91/56; PULSE 74; TEMP 97.7
[2016-08-08] MEDS: REGULAR INSULIN 100 UNITS/ML - 3 ML VIAL SQ SCH ×2 (05:42→13:42)
[2016-08-08] MEDS: PANTOPRAZOLE 40 MG TAB PO SCH (05:50)
[2016-08-08] MEDS: METOCLOPRAMIDE 5 MG TAB PO SCH ×2 (05:50→13:42)
[2016-08-08] MEDS ORDERED: SODIUM CHLORIDE 0.9% 5 ML FLUSH FLUSH SCH (06:00)
[2016-08-08 06:27] VITALS: BMI 25.4
[2016-08-08 08:52] LABS: AUTOMATED BASOPHIL 1.1 % (0-2); AUTOMATED EOSINOPHIL 1.6 % (0-5); AUTOMATED LYMPH 49.5 % (17-44); AUTOMATED MONOCYTE 5.3 % (3-10); AUTOMATED NEUTROPHIL 42.5 % (45-76)
[2016-08-08] MEDS: APIXABAN 5 MG TABLET PO SCH (09:04)
[2016-08-08] MEDS: PROBIOTIC BLEND TAB PO SCH (09:04)
[2016-08-08] MEDS: GABAPENTIN 300 MG CAP PO SCH (09:04)
[2016-08-08] MEDS: GLARGINE INSULIN (LANTUS) 100 UNITS/ML PEN SQ SCH (09:12)
--- NOTE | 2016-08-08 09:12 | PCM.DCS92 ---
- Final/Secondary Discharge Diagnosis (1) DKA (diabetic ketoacidoses) Acute E13.10 - OTH DIABETES MELLITUS WITH KETOACIDOSIS WITHOUT COMA Present on Admission: Yes type 1 with coma E10.11 - Type 1 diabetes mellitus with ketoacidosis with coma Comment: Overall doing better. However she was significantly hypoglycemic yesterday morning. Continue Lantus. She is only getting 2-4 units additonal on sliding scale insulin. Discontinue IV fluids and increase activity. She is tolerating p.o. without difficulty, should be stable for discharge. (2) Dehydration Resolved E86.0 - DEHYDRATION Present on Admission: Yes Comment: Eating without difficulty. Discontinue IV fluids. 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 She does seem to correct rapidly. (5) Nausea and vomiting Resolved R11.2 - NAUSEA WITH VOMITING, UNSPECIFIED Present on Admission: Yes unspecified intractable R11.2 - Nausea with vomiting, unspecified Comment: Patient describes emesis as water like. May be related to her gastroparesis versus mild gastroenteritis. Plan: IV anti emetics p.r.n. nausea vomiting. IV hydration as outlined above. Discharge Disposition: Home Discharge Condition: Improved Cognitive Discharge Status: Unimpaired Fuctional Discharge Status: Independent Forms: Patient Discharge Instructions, ED Discharge Instructions Physician Follow up/Referrals: Humberto Hernandez MD [Primary Care Provider] - One Week Home Medications / New Prescriptions: New Metoclopramide HCl [Reglan] 5 mg PO ACHS #120 tablet Probiotic Blend [Zoey Q] 1 tab PO BIDWM #60 tablet Continue Gabapentin 600 mg PO BID Apixaban [Eliquis] 5 mg PO BID #60 tablet Esomeprazole Mag Trihydrate [Nexium] 40 mg PO BID #60 capsule. Oxycodone Immediate Release [Oxycodone Immediate Release (OxyIR)] 5 mg PO Q4H PRN #20 tablet PRN Reason: Moderate To Severe Pain Insulin Glargine [Lantus Pen] 35 units SQ QAM Changed Insulin Lispro [Humalog] 2 units SQ .SLIDING SCALE #1 pen Discharge Home Medication List Gabapentin 600 mg PO BID 12/07/15 [History Confirmed 08/05/16 Last Taken 20:02] Apixaban [Eliquis] 5 mg PO BID #60 tablet 07/07/16 [Rx Confirmed 08/05/16 Last Taken Unknown] Esomeprazole Mag Trihydrate [Nexium] 40 mg PO BID #60 capsule. 07/07/16 [Rx Confirmed 08/05/16 Last Taken 07/07/16 05:17] Oxycodone Immediate Release [Oxycodone Immediate Release (OxyIR)] 5 mg PO Q4H PRN #20 tablet 07/07/16 [Rx Confirmed 08/05/16 Last Taken 07/07/16 08:16] Insulin Glargine [Lantus Pen] 35 units SQ QAM 08/05/16 [History Confirmed Last Taken 08/04/16] Insulin Lispro [Humalog] 0 units SQ .SLIDING SCALE 08/05/16 [History Confirmed 08/05/16 Last Taken 08/05/16] Metoclopramide HCl [Reglan] 5 mg PO ACHS #120 tablet 08/08/16 [Rx Last Taken Unknown] Probiotic Blend [Zoey Q] 1 tab PO BIDWM #60 tablet 08/08/16 [Rx Last Taken Unknown] O2 Device: Room Air Diet at Discharge: Heart Healthy, Diabetic, 1800 Calorie Activity: As Tolerated Call Office For: Worsening Symptoms Discontinue use of:: Alcohol, All Types of Tobacco - DC Summary Notes Hospital Course Note:: Discharge summary on patient named MARGOTH NY admitted to [facility] on 08/05/16 by Dale Serrano MD. Date of discharge is []. Ms Ny is a 46-year-old white female well known to me from multiple hospitalizations for diabetic ketoacidosis. She presented to the hospital with nausea vomiting and delirium typical of her DKA symptoms. Her blood sugar is 479 with a bicarb of less than 5 and an anion gap of 32. She is unable to provide much other history but she has repeatedly stated that she is compliant with her insulin and states she took her insulin last evening and today. She has been admitted here approximately once a month for the last 7 months. She is also had frequent admissions to [facility]. Her primary restaurant district manager Dr. Bowser in [place] has referred her to [facility] for 2nd opinion to evaluate why she keeps having these frequent episodes of DKA. She is being admitted to the intensive care unit for further evaluation and management of acute DKA. The patient was admitted and started on an insulin infusion per DKA protocol. After her anion gap corrected and her dehydration resolved, she felt much better. Most of her nausea had resolved, and her diet was advanced. She was placed on Reglan to help with gastroparesis. She did have some problems with hypoglycemia the morning of August 07, 2016. This was corrected with IV dextrose. She has been fairly well controlled on her home dose of Lantus, with minimal additional insulin per sliding scale. If she is omitting her meal-time insulin at home this dose may be adequate for her, but it may also explain why she eventually develops acidosis. If she is trying to achieve better control, she would be better off with a lower dose of Lantus and a smaller dose of short acting insulin such as Humalog prior to each meal. I see that compliance is in question for this patient and she has had multiple hospitalizations in the past. We did discuss her use of insulin. She states she has been using an average of 10-12 units of insulin prior to each meal on her current sliding scale, with the 35 units of Lantus. (Her diet may be significantly differently at home?) She will be discharged home today, and is to keep her scheduled appointment with her restaurant district manager at [facility]. Total Time: 40 min Code: 55298 (>30min.) - Physical Exam Vital Signs: Last Vital Signs Temp 97.7 F 08/08/16 04:44 Pulse 74 08/08/16 04:44 Resp 16 08/08/16 04:44 BP 91/56 L 08/08/16 04:44 Pulse Ox 98 08/08/16 04:44 Oxygen Pulse Oxygen Saturation 98 O2 Device Room Air Oxygen Flow Rate Fraction of Inspired Oxygen ( 99 FIO2) Constitutional: No apparent distress, Alert (Awake), Well nourished. negative: Well appearing (Chronically ill-appearing) Oriented to: Time, Person, Place - HEENT Head: Normal ( normocephalic) Eye: Normal (PERRL, EOMI, Sclera white) Oropharynx: Normal Tympanic Membrane: Normal ENT EAC: Normal TMJ: Normal Nose: No Symptoms Reported (septum midline) - Respiratory/Cardiovascular Respiratory: Normal - CTA Cardiovascular: Normal - GI Auscultation: Normal (NABS) Palpation: Normal (Soft,No rebound or guarding, non distended) Tenderness: Non tender Rectal Exam: Normal - Musculoskeletal Back: Normal (Non-Tender) Extremities: Normal (Normal tone, Pulses 2+ No cyanosis or edema, FROM). negative: Femoral Pulse, Pedal Pulse - Integumentary Skin: Warm, Dry Lymphatics: Normal (no adenopathy). negative: Adenopathy - Neurologic Memory Impaired: Normal Motor Function: Normal Cranial Nerve: Normal Cerebellar: Normal Mood Description: Normal Thought: Coherent Perception: Normal
[2016-08-08 09:14] LABS: BLOOD UREA NITROGEN 14 MG/DL (7-17); CALCIUM 9.2 MG/DL (8.4-10.2); CALCULATED OSMOLALITY 268 MOs/Kg (270-290); CHLORIDE 99 mEq/L (98-107); GLUCOSE 79 MG/DL (70-99); SODIUM LEVEL 139 mEq/L (137-146)
== END 2016-08-08 12:19 | disposition home or self-care (01) | DRG 639 ==
LOC: ED 09:06 → ICU 11:15 → MPS3 08-06 19:21
PROVIDERS: ADMIT Hospitalist; ATTEND Family Medicine
DX: E10.11 Type 1 diabetes mellitus with ketoacidosis with coma (principal); K31.84 Gastroparesis; E10.43 Type 1 diabetes mellitus with diabetic autonomic (poly)neuropathy; E86.0 Dehydration; Z91.19 Patient's noncompliance with other medical treatment and regimen; E78.00 Pure hypercholesterolemia, unspecified; K21.9 Gastro-esophageal reflux disease without esophagitis; M19.90 Unspecified osteoarthritis, unspecified site; Z85.9 Personal history of malignant neoplasm, unspecified; Z86.73 Personal history of transient ischemic attack (TIA), and cerebral infarction without residual deficits; F32.9 Major depressive disorder, single episode, unspecified; Z79.899 Other long term (current) drug therapy; Z79.4 Long term (current) use of insulin
CPT/HCPCS: 36415; 71010; 80048; 80053; 81001; 82947; 82962; 83690; 83735; 84100; 84484; 85025; 93005; 96361; 96365; 96372; 96375; 99284; J1642; J1815; J2270; J2405; J3475; J3480; J3490; J7030; J7040; J7060; J7070